=== PATIENT | male | born 1975 | race Caucasian/White ===

== ENCOUNTER 2020-08-22 14:46 | Emergency (ER) | payer OTHER ==
[~2020-08-22] VITALS: Ht 188 cm; Wt 100.2 kg
[2020-08-22 15:12] VITALS: Ht 188 cm; Wt 100.2 kg
[2020-08-22 16:39] LABS: BASOPHIL % 0.7 % (0-2); RED CELL DISTRIBUTION WIDTH 12.5 % (11.5-14.5)
[2020-08-22 16:40] LABS: PLATELET COUNT 93 x10^3mcL (130-400)
[2020-08-22 17:47] VITALS: BP 157/97
== END 2020-08-22 17:47 | disposition home or self-care (01) ==
LOC: ED 14:46
PROVIDERS: Specialist
DX: F10.20 Alcohol dependence, uncomplicated (principal); D69.6 Thrombocytopenia, unspecified